=== PATIENT | female | born 1980 | race Caucasian/White ===

== ENCOUNTER 2016-06-08 21:56 | Emergency (ER) | payer SELFPAY ==
--- NOTE | 2016-06-20 21:14 | ER ---
ADMIT: 06/08/2016 RM/LOC: ER [facility] MR#: [id number] [address] [id number] MEE HEREDIACA Ethan [address] [address] Emergency Room Report SEX: F AGE: 35 : 1980 DATE: 06/08/2016 ADDENDUM: CHIEF COMPLAINT: Scalp burning. HISTORY OF PRESENT ILLNESS: This 35-year-old female who had her hair done at [facility] in [place] earlier today around noon. They finished around 4 or 5. She said she felt fine initially, but on her way home, there was a lot of burning. She washed her hair multiple times, she cannot make the pain go away and now, it has made her have a migraine headache. COURSE IN THE EMERGENCY ROOM: I am giving her two [place] 5/325, having her discharge home, and follow up as needed. CLINICAL IMPRESSION: 1. Contact dermatitis to the scalp. 2. Acute headache. VERONA Allison / Ulises Lee MD / erickal JOB #: [id number] CC: Ulises Lee MD, Attending Physician Osiel Cagle MD, Family Physician
== END 2016-06-08 23:52 | disposition home or self-care (01) ==
LOC: ER 21:56
DX: L25.9 Unspecified contact dermatitis, unspecified cause (principal); F17.210 Nicotine dependence, cigarettes, uncomplicated; Z88.1 Allergy status to other antibiotic agents; Z88.0 Allergy status to penicillin